=== PATIENT | female | born 1950 | race Caucasian/White ===

== ENCOUNTER 2016-07-02 01:37 | Observation (INO) | payer OTHER ==
--- NOTE | 2016-06-14 10:57 | History & Physical Pre-Op ---
General Information and HPI History of Present Illness: patient represents for discussion about her incisional hernia. She had laparoscopic sigmoid colectomy in 2008. Since then she noted increasing size of a bulge near her umbilicus. I saw her last year and recommended laparoscopic incisional hernia repair with mesh. She wanted to postpone surgery due to changes in her insurance. She now presents for reconsideration of hernia repair. She notes increasing swelling at the site. There is no pain. No nausea vomiting or change to her bowel function. Allergies/Medications Allergies: Coded Allergies: candesartan (From ATACAND) (HIVES 06/08/16) Home Med list Atenolol 50 MG TABLET 75 MG PO DAILY BP (Reported) Diltiazem HCl (Cardizem Cd) 300 MG CAP.ER.24H 1 CAP PO DAILY BP (Reported) Ergocalciferol (Vitamin D2) (Vitamin D2) 50,000 UNIT CAPSULE 1 CAP PO QSUN SUPPLEMENT (Reported) Fexofenadine HCl (Cheryl Allergy) 180 MG TABLET 1 TAB PO DAILY ALLERGIES ( Reported) Pravastatin Sodium (Pravachol) 20 MG TABLET 1 TAB PO DAILY CHOLESTEROL ( Reported) Sitagliptin Phosphate (Januvia) 100 MG TABLET 1 TAB PO DAILY DM (Reported) Past History Medical History Cardiovascular: hypertension, hyperlipidemia, SVT Gastrointestinal: GERD Endocrine: diabetes Cancer(s): colon/rectal cancer Influenza Vaccine: 03/25/09 Surgical History Pertinent Surgical History: LAPAROSCOPIC SIGMOID COLECTOMY Past Family/Social History Psychosocial History Services at Home NONE Smoking Status: Never Smoked ETOH Use: occasional use Review of Systems Review of Systems: Patient reports no cough, no wheezing, no shortness of breath, and no coughing up blood; reactive airway disease to smoke. She reports arthralgias/joint pain ( right knee) and back pain but reports no muscle aches and no muscle weakness. She reports no fatigue, no fever, no night sweats, no significant weight gain, no significant weight loss, and no exercise intolerance. She reports no abnormal moles, no jaundice, no hives, no eczema, and no rashes. She reports no swollen glands and no neck stiffness. She reports no chest pain, no arm pain on exertion , no shortness of breath when walking, no shortness of breath when lying down, no palpitations, and no leg swelling. She reports no abdominal pain, no vomiting , no vomiting blood, normal appetite, no diarrhea, no constipation, no rectal bleeding, and no history of GERD. She reports no incontinence, no difficulty urinating, no hematuria, and no increased frequency. She reports no loss of consciousness, no weakness, no numbness, no seizures, no dizziness, no loss of balance, no fall in the past year, and no fall since last visit. She reports no gynecologic complaints. Exam & Diagnostic Data Physical Exam: Patient is a 66-year-old female. Constitutional: General Appearance: healthy-appearing and obese. Level of Distress: no acute distress. Ambulation: ambulating normally. Head: Head: normocephalic and atraumatic. Cardiovascular: Heart Auscultation: normal S1 and S2; no murmurs, rubs, or gallops; and regular rate and rhythm. Lungs: Respiratory effort: no dyspnea. Percussion: no dullness, flatness, or hyperresonance. Auscultation: no wheezing, rales/crackles, or rhonchi and breath sounds normal, good air movement, and clear to auscultation. Back: Thoracolumbar Appearance: normal curvature. Abdomen: Inspection and Palpation: no tenderness, guarding, masses, rebound tenderness, or CVA tenderness and soft and non-distended. Bowel Sounds: normal. Liver: non-tender and no hepatomegaly. Spleen: non-tender and no splenomegaly. Hernia: periumbilical (tender, reducible. Defect size difficult to assess given obesity.). Skin: Inspection and palpation: no rash, lesions, ulcer, induration, nodules, jaundice, or abnormal nevi and good turgor. Musculoskeletal:: Extremities: no cyanosis, edema, varicosities, or palpable cord. Motor Strength and Tone: normal tone and motor strength. Joints, Bones, and Muscles: no contractures, malalignment, tenderness, or bony abnormalities and normal movement of all extremities. Psychiatric: Insight: good judgement and insight. Mental Status: normal mood and affect and active and alert. Orientation: to time, place, and person. Memory: recent memory normal and remote memory normal. Assessment/Plan Assessment/Plan: Incisional hernia - recommend laparoscopic repair . she will call to schedule surgery when she knows the specific date. I reinforced with her the need to undergo repair due to concerns about incarceration and strangulation. K43.2: Incisional hernia without obstruction or gangrene Discussion Notes Discussed the pathophysiology of hernias and the need for mesh repair. S/he understands the permanent nature of mesh. Discussed the risks of surgery including recurrence of the hernia, bleeding and infection. S/he understands that if mesh infection occurs, removal will necessary. S/he understands the need for general anesthesia. Discussed emergent complications of oberved hernias including increasing pain, distention, nausea and vomiting. Discussed erythema of hernia site as well. Patient understands to call me urgently or go to ER should these findings develop. As Ranked By This Provider Problem List: 1. Incisional hernia of anterior abdominal wall without obstruction or gangrene
[~2016-07-02] VITALS: Ht 170.2 cm; Wt 97.5 kg
[~2016-07-02 01:37] MED LIST: ALLEGRA ALLERG180 M1 PO; ATENOLOL50 M1 PO; CARDIZEM CD300 M1 PO; JANUVIA100 M1 PO; MOBIC15 MG PO; PRAVACHOL20 M2 PO; VITAMIN D250000 UNIT PO; ZANAFLEX4 MG PO
--- NOTE | 2016-07-02 17:43 | Operative Report ---
Operative/Inv Procedure Report Surgery Date: 07/02/16 Name of Procedure: Laparoscopic incisional hernia repair Pre-Operative Diagnosis: Incisional hernia Post-Operative Diagnosis: Same Estimated Blood Loss: scant Surgeon/Scene Painter: FLY RUFF,PAM Shah/Melba EDWARDS Anesthesia: general endotracheal tube Implants: 12 cm Parietex Operative/Procedure Note Note: After consent she is brought to the operating room and laid supine. Gen. anesthesia was obtained and her abdomen was prepped and draped. Skin and left upper quadrant was after local anesthesia a transverse incision made sharply. We gained access to the peritoneum using a 12 mm optical trocar. Pneumoperitoneum was achieved. No overt bowel injury was noted. 2, 5 mm ports are placed in left lower quadrant after local anesthesia was instilled and under direct vision the camera. The abdomen was explored. There was a solitary incisional hernia at the umbilicus. There was incarcerated omentum which was delivered and reflected inferiorly. The fatty preperitoneal tissue above the defect was taken down with cautery to expose healthy clean fascia. The measured of the defect was approximately 4 cm in greatest dimension. I chose a 12 cm Parietex mesh to cover the defect. It was marked for orientation then transfixion sutures using 0 Baker-Nino were placed in 4 quadrants. The mesh was hydrated rolled up and placed in the perineal cavity. It was unraveled below the defect. Transfixion sutures then brought up percutaneously superiorly and fairly thin laterally in a sequential fashion. Once were happy with the placement of mesh the sutures were tied down and trimmed. The mesh was then adhered to the anterior abdominal wall with the absorbable tackers in a double crown fashion. The fashion the left upper quadrant was closed with 0 Vicryl suture. The ports were delivered and pneumoperitoneum evacuated. Skin incisions closed with 4-0 Vicryl. Steri-Strips and sterile dressing were applied. Sponge and needle counts are correct. CC: YECENIA RUFF,KUSH Ziegler
[2016-07-02] MEDS ORDERED: METFORMIN HCL500 M3 PO (21:41)
[2016-07-02] MEDS ORDERED: PERCOCET 5-3251 EACH PO (21:44)
--- NOTE | 2016-07-02 21:45 | Patient Discharge Instructions ---
Discharge Instructions General Discharge Information You were seen/treated for: INCISIONAL HERNIA You had these procedures: LAPAROSCOPIC HERNIA REPAIR Watch for these problems: FEVER >101, DRAINAGE OR REDNESS OF INCISION SITES, PERSISTENT NAUSEA/VOMITING, CHEST PAIN, SHORTNESS OF BREATH. No bath, but you may shower: Yes Other wound care: YOU MAY SHOWER AND REMOVE BAND-AIDS DESIRED. LEAVE STERI STRIPS IN PLACE UNTIL THEY FALL OFF ON THEIR OWN. Diet Continue normal diet: Yes Recommended Diet: Diabetic Activity Full Activity/No Limits: No Activity Self Limited: Yes Pounds, do NOT lift more than: 5 Other activity limits: NO STRENUOUS ACTIVITY OR HEAVY LIFTING, PUSHING OR PULLING. NO DRIVING WHILE USING NARCOTICS. PLEASE SEE ATTACHED INSTRUCTION SHEET FOR FURTHER INFO. Acute Coronary Syndrome Inclusion Criteria At DC or during hospital stay patient has or had the following: ACS DIAGNOSIS No Discharge Core Measures Meds if any: Prescribed or Continued at Discharge Meds if any: NOT Prescribed or Continued at Discharge Congestive Heart Failure Inclusion Criteria At DC or during hospital stay patient has or had the following: CHF DIAGNOSIS No Discharge Core Measures Meds if any: Prescribed or Continued at Discharge Meds if any: NOT Prescribed or Continued at Discharge Cerebrovascular accident Inclusion Criteria At DC or during hospital stay patient has or had the following: CVA/TIA Diagnosis No Discharge Core Measures Meds if any: Prescribed or Continued at Discharge Meds if any: NOT Prescribed or Continued at Discharge Venous thromboembolism Inclusion Criteria VTE Diagnosis No VTE Type NONE VTE Confirmed by (Test) NONE Discharge Core Measures - Per Current guidelines, there needs to be overlap - treatment for the first 5 days of Warfarin therapy. - If discharged on Warfarin prior to 5 days of - overlap therapy, the patient will need to be - assessed for post discharge needs including - *Post discharge parental anticoagulation - *Warfarin and/or parental anticoagulation education - *Follow up date to check INR post discharge At least 5 days overlap therapy as Inpatient No Meds if any: Prescribed or Continued at Discharge Note: Overlap Therapy is Warfarin and Anticoagulant Meds if any: NOT Prescribed or Continued at Discharge
[2016-07-02 21:49] VITALS: BP 182/68
--- NOTE | 2016-07-02 21:53 | Event Note ---
Event Note Event Note: I was called by HEELER MACHINE earlier this evening with pt c/o nausea and very drowsy. The decision was made to admit pt for 23 hour observation. Pt's med list was updated. BP is in the 160's systolic at this time. Pt states that she did not take her atenolol this morning. She was given labetalol 200 mg IV x 2 in pacu. We will dose 25 mg of atenolol now and then restart her usual dose of 75 mg in AM. Zofran can be used as needed for nausea. Ok to advance diet as tolerated. If pt remains nauseated, consider starting a low rate of IVF. Dr. Lora is aware. Anticipate DC in am.
--- NOTE | 2016-07-02 23:00 | Admission Core Measures ---
Admission Meds I reviewed the following Meds: Current Medications Sig/Alejandra Start time Last Medication Dose Stop Time Status Admin Acetaminophen 650 MG Q6P PRN 07/02 2144 AC (Tylenol) Atenolol 75 MG DAILY 07/03 1000 AC (Tenormin) Diltiazem HCl 300 MG DAILY 07/03 1000 AC (Cardizem CD) Heparin Sodium 5,000 UNIT Q8 07/03 0600 AC (Porcine) Morphine Sulfate 2 MG Q2P PRN 07/02 2144 AC (Morphine) Ondansetron HCl 4 MG Q6P PRN 07/02 2144 AC (Zofran) Oxycodone/ 1 TAB Q4P PRN 07/02 2144 AC Acetaminophen (Percocet) Oxycodone/ 2 TAB Q4P PRN 07/02 2144 AC Acetaminophen (Percocet) Trimethobenzamide HCl 200 MG Q6P PRN 07/02 2144 AC (Tigan) Acute Coronary Syndrome Inclusion Criteria ACS Diagnosis No Inpatient Core Measures LDL Reminder: If No, please order W/I first 24hr of stay Congestive Heart Failure Inclusion Criteria CHF Diagnosis No Cerebrovascular accident Inclusion Criteria CVA/TIA Diagnosis No Inpatient Core Measures Bedside Swallow Eval Reminder: If BSE failed, place ST order Antithrombotic Reminder: Order Antithrombotic Medication by end of day 2 Antithrombotic Reminder: Document Reason Antithrombotic Not ordered by end of day 2 AFIB/Flutter Reminder: If Present, add to problem list AFIB/Flutter Reminder: Order Anticoag Medication for pts with AFIB/Flutter Atherosclerosis Reminder: If Present, add to problem list LDL Reminder: If No, please order W/I first 24hr of stay PT Order Reminder: If No, please order Venous thromboembolism Inpatient Core Measures VTE Risk Factors: Age > 40, Cancer/chemo/oth therapy, Surgery VTE Prophylaxis Ordered Inpt Mech & Pharm No Mech VTE prophylaxis d/t No contraindications No VTE Pharm Prophylaxis d/t No contraindications Inclusion Criteria - Per Current guidelines, there needs to be overlap - treatment for the first 5 days of Warfarin therapy. - Parenteral Anticoagulation (IV or SC) needs to be - given along with Warfarin therapy. VTE Diagnosis No VTE Type NONE VTE Confirmed by (Test) NONE Problem List As ranked by this Provider includes Assessment & Plan 1. Incisional hernia of anterior abdominal wall without obstruction or gangrene HOME MEDS Home Med List Atenolol 50 MG TABLET 1 TAB PO DAILY BP (Reported) Diltiazem HCl (Cardizem Cd) 300 MG CAP.ER.24H 1 CAP PO DAILY BP (Reported) Ergocalciferol (Vitamin D2) (Vitamin D2) 50,000 UNIT CAPSULE 1 CAP PO QSUN SUPPLEMENT (Reported) Fexofenadine HCl (Cheryl Allergy) 180 MG TABLET 1 TAB PO DAILY ALLERGIES ( Reported) Metformin HCl 500 MG TABLET 1 TAB PO DAILY DIABETES (Reported) Oxycodone HCl/Acetaminophen (Percocet 5-325 MG Tablet) 5 MG-325 MG TABLET 1-2 TAB PO Q4P PRN PAIN Pravastatin Sodium (Pravachol) 20 MG TABLET 1 TAB PO DAILY CHOLESTEROL ( Reported)
--- NOTE | 2016-07-02 23:42 | NUR ---
PT ARRIVED ON UNIT FROM PACU IN RECLINER. PT IS DROUSY AROUSABLE ALERT AND ORIENTED X3, C/O NAUSEA MEDICATED WITH IV ZOFRAN AFTER PT AMBULATED WITH MIN ASSIST TO BED. PT HAS PIV #20 TO RH CDI, D5LR RUNNING AT 75ML/HR PER NEYDA PA- C FLUIDS TO BE ORDERED IF PATIENT CONTIUES TO C/O OF NAUSEA AND/OR BEGINS VOMITING. 6 ABD BANDAIDS ARE CDI. VSS AFEBRILE HTN 182/68 PA-C NEYDA AWARE. ALPS IN PLACE, BED IN LOW POSTION, ORIENTED PATIENT TO BED CONTROLS AND CALL GUY. PATIENTS DAUGHTER LEFT PATIENTS GLASSES AND CELL PHONE ON TRAY TABLE.
[2016-07-03 01:20] VITALS: BP 154/90
--- NOTE | 2016-07-03 01:33 | NUR ---
REPORT RECEIVED FROM ARELY WHITE, PER RN PT'S BP WAS 182/68 ONE TIME DOSE OF ATENOLOL ORDERED, MED NOT GIVEN BY PREVIOUS RN BECAUSE MED NOT ON FLOOR, ADMINISTERED BP MED AT 0000 BY THIS RN BP 168/90 HR 86, NO DISTRESS, DENIES CHEST PAIN AND SOB. RECHECKED BP ONE HOUR LATER 154/90 HR 88. SURGICIAL JERRY VALERIO MADE AWARE, PER PA NO NEW ORDERS FOR BP AT THIS TIME BECAUSE PT WILL RECEIVE 75MG ATENOLOL IN AM. ALSO PA MADE AWARE PT IS A DIABETIC AND NO ORDERS FOR COVERAGE OR FINGERSTICKS, PER PA WILL PUT ORDERS IN. WILL CONTINUE TO MONITOR.
[2016-07-03 03:09] VITALS: BP 168/90
--- NOTE | 2016-07-03 03:19 | NUR ---
BP 168/90 SURGICIAL JERRY VALERIO MADE AWARE, NO NEW ORDERS AT THIS TIME.
[2016-07-03 06:19] VITALS: BP 166/88
[2016-07-03 08:42] VITALS: BP 120/70
--- NOTE | 2016-07-03 09:40 | PN- General Surgery ---
Subjective Subjective: POD #1 s/p laparoscopic incisional hernia repair. Resting comfortably in bed. Was nauseated last night, not currently. Has not vomited. Denies CP/SOB, F/C. Yet to ambulate. Voiding spontaneously. Objective Vital Signs and I&Os Vital Signs Date Time Temp Pulse Resp B/P Pulse O2 O2 Flow FiO2 Ox Delivery Rate 07/03 0842 120/70 07/03 0619 98.9 80 18 166/88 95 Nasal Cannula 07/03 0309 98.3 89 20 168/90 94 Nasal Cannula 07/03 0120 88 18 154/90 95 Nasal Cannula 07/03 0000 94 Nasal 2.0L Cannula 07/02 2359 86 20 168/90 07/02 2149 97.9 87 16 182/68 95 Nasal 2.0L Cannula Intake & Output 07/03 1600 07/03 0800 07/03 0000 07/02 1600 07/02 0800 07/02 0000 Intake Total 300 210 Output Total 1000 Balance -700 210 Intake, IV 150 Intake, Oral 300 60 Number 0 Bowel Movements Output, Urine 1000 Patient 215 lb Weight Physical Exam: Gen: AAOx3 in NAD Cor: S1+S2+ Lungs: CTA lico Abd: soft, diffusely tender to deep palpation, ND, +BS x4 Ext: no edema or calf tenderness to lico lower extremities. Assessment/Plan Assessment/Plan A: POD #1 s/p lap incisional hernia repair; AVSS. Plan: Continue regular diet. D/C home today. Core Measures/Miscellaneous Venous Thromboembolism VTE Risk Factors: Age > 40, Surgery VTE Contraindications: No Contraindications VTE Prophylaxis Ordered Inpt Mech & Pharm VTE Diagnosis: No VTE Type: NONE VTE Confirmed by (Test): NONE Beta Yolanda Is Beta Yolanda a Home Med? Yes If Yes, Was This Ordered Today? Yes Antibiotics Is Patient on Antibiotics? No
== END 2016-07-03 12:00 ==
LOC: ENRESERVDT → ENRESERVTM → STS 01:37 → ENPENDDIS 20:41 → PACUH 20:41 → 2NA 21:18
PROVIDERS: ADMIT Surgery
DX: K43.2 Incisional hernia without obstruction or gangrene (principal); R11.0 Nausea; R40.0 Somnolence
CPT/HCPCS: 6030; C1781; G0378; J0690; J1100; J1644; J2405; J3250

== ENCOUNTER 2017-10-08 20:19 | Emergency (ER) | payer OTHER ==
[~2017-10-08] VITALS: Ht 170.2 cm; Wt 99.8 kg
[~2017-10-08 20:19] MED LIST changes: +METFORMIN HCL500 M3 PO; +PERCOCET 5-3251 EACH PO
[2017-10-08 20:47] LABS: ABSOLUTE BASOPHIL COUNT 0 /CUMM (0.0-0.2); ABSOLUTE EOSINOPHIL COUNT 0.1 /CUMM (0.0-0.7); ABSOLUTE GRANULOCYTE CT 4.1 /CUMM (1.4-6.5); ABSOLUTE LYMPH COUNT 2.7 /CUMM (1.2-3.4); ABSOLUTE MONOCYTE COUNT 0.6 /CUMM (0.10-0.60); BASOPHIL % 0.3 % (0.0-2.0); EOSINOPHIL % 1.8 % (0-5); GRANULOCYTE % 54.1 % (42.2-75.2); HEMATOCRIT 40.4 % (37-47); MEAN CORPUSCULAR HGB 28.3 PG (27.0-31.0); MEAN CORPUSCULAR HGB CONC 32.8 G/DL (33.0-37.0); MEAN CORPUSCULAR VOLUME 86.3 FL (81.0-99.0); MEAN PLATELET VOLUME 6.2 FL (7.4-10.4); PLATELET COUNT 296 /CUMM (130-400); RBC DISTRIBUTION WIDTH 14.6 % (11.5-14.5); RED BLOOD CELL CT 4.68 /CUMM (4.20-5.40); WHITE BLOOD CELL COUNT 7.5 /CUMM (4.8-10.8)
--- NOTE | 2017-10-08 20:47 | ED AMS/SEIZURE/WEAK/DIZZY ---
History of Present Illness General Chief Complaint: Dizziness Stated Complaint: DIZZY, "MY HEART WAS BUZZING" Source: patient, family Exam Limitations: no limitations Vital Signs & Intake/Output Vital Signs & Intake/Output Vital Signs Date Time Temp Pulse Resp B/P B/P Pulse O2 O2 Flow FiO2 Mean Ox Delivery Rate 10/08 2356 98.2 66 18 178/86 96 Room Air 10/087 98.0 53 20 180/86 95 Room Air Room Air 10/08 2022 97.7 68 20 97 Room Air ED Intake and Output 10/09 0000 10/08 1200 Intake Total Output Total Balance Patient 220 lb Weight Allergies Coded Allergies: candesartan (From ATACAND) (HIVES 06/08/16) Reconcile Medications Atenolol 50 MG TABLET 1 TAB PO DAILY BP (Reported) PT TAKES 75 MG TOTAL DAILY Diltiazem HCl (Cardizem Cd) 300 MG CAP.ER.24H 1 CAP PO DAILY BP (Reported) Ergocalciferol (Vitamin D2) (Vitamin D2) 50,000 UNIT CAPSULE 1 CAP PO QSUN SUPPLEMENT (Reported) Fexofenadine HCl (Cheryl Allergy) 180 MG TABLET 1 TAB PO DAILY ALLERGIES ( Reported) Meclizine HCl 25 MG TABLET 1 TAB PO TIDPRN PRN vertigo Metformin HCl 500 MG TABLET 1 TAB PO DAILY DIABETES (Reported) Oxycodone HCl/Acetaminophen (Percocet 5-325 MG Tablet) 5 MG-325 MG TABLET 1-2 TAB PO Q4P PRN PAIN Pravastatin Sodium (Pravachol) 20 MG TABLET 1 TAB PO DAILY CHOLESTEROL ( Reported) Triage Note: PT TO TRIAGE C/O DIZZINESS WHILE DRIVING TODAY AND PT HAD TO REPORTS DEVELOPER. PT ALSO C/O FELT "MY HEART WAS BUZZING," BUT SINCE HAS PASSED. DENIES CP, SOB. PT ALSO C/O HTN AND LOWER EXT SWELLING. BP IN TRIAGE . PT ALSO REPORTS DOES NOT HAVE A SENIOR APPLICATIONS ENGINEER AND WOULD LIKE A REFFERAL. Triage Nurses Notes Reviewed? yes Onset: Gradual Duration: hour(s): Timing: recent history Injury Environment: home Severity: mild Modifying Factors: Improves With: rest, other (better w/holding head still). Associated Symptoms: "room spinning" HPI: 67 yo h/o diabetes, h/o svt, presents with vertigo at 5pm, also felt "buzzing" in chest. Her "buzzing" began shortly before her dizziness. She notes "a funny feeling," that was atypical of her svt, was not characterized as pressure or pain. She had no shortness of breath, wheezing, chills. She notes that, "I was driving and felt really dizzy... like the world was moving." Worse with movement of her head. Associated with mild nausea. She notes mild seasonal allergies, no medications changes. She is otherwise well. Past History Travel History Traveled to [place] past 21 day No Medical History Any Pertinent Medical History? see below for history Neurological: NONE EENT: NONE Cardiovascular: hypertension, hyperlipidemia, SVT Respiratory: NONE Gastrointestinal: GERD Hepatic: NONE Renal: NONE Musculoskeletal: NONE Psychiatric: NONE Endocrine: diabetes Blood Disorders: NONE Cancer(s): colon/rectal cancer STORE STOCK HELP/Reproductive: NONE History of MRSA: No History of VRE: No History of CDIFF: No Influenza Vaccine: 03/25/09 Surgical History Surgical History: none Psychosocial History Who do you live with Spouse Services at Home NONE What is your primary language Sinhala Tobacco Use: Never used Family History Hx Contributory? No Review of Systems Review of Systems Constitutional: Reports: no symptoms. EENTM: Reports: no symptoms. Respiratory: Reports: no symptoms. Cardiovascular: Reports: no symptoms. GI: Reports: no symptoms. Genitourinary: Reports: no symptoms. Musculoskeletal: Reports: no symptoms. Skin: Reports: no symptoms. Neurological/Psychological: Reports: no symptoms. Hematologic/Endocrine: Reports: no symptoms. Immunologic/Allergic: Reports: no symptoms. All Other Systems: Reviewed and Negative Physical Exam Physical Exam General Appearance: well developed/nourished, no apparent distress Head: atraumatic, normal appearance Eyes: Bilateral: normal appearance, PERRL, EOMI. Ears, Nose, Throat: normal pharynx, normal ENT inspection Neck: normal inspection, supple, full range of motion Respiratory: normal breath sounds, chest non-tender, no respiratory distress, quiet respiration, lungs clear Cardiovascular: regular rate/rhythm Gastrointestinal: normal bowel sounds, soft, non-tender, no organomegaly Back: normal inspection, normal range of motion Extremities: normal range of motion Neurologic/Psych: no motor/sensory deficits, awake, alert, oriented x 3, vertigo elicited with rapid head movement, no nystagmus Reflexes: 1+: bicep (R), bicep (L), knee (R), knee (L). Skin: intact, normal color, warm/dry Core Measures ACS in differential dx? No CVA/TIA Diagnosis No Sepsis Present: No Sepsis Focused Exam Completed? No Progress Differential Diagnosis: vertigo, lightheadedness, electrolyte abnormality, cardiac issues. Plan of Care: Orders Procedure Date/time Status TROPONIN LEVEL 10/08 2304 Complete EKG 10/08 2304 Active TROPONIN LEVEL 10/08 2022 Complete LIPASE 10/08 2022 Complete HEPATIC FUNCTION PANEL 10/08 2022 Complete D-DIMER 10/08 2022 Complete CBC WITHOUT DIFFERENTIAL 10/08 2022 Complete BASIC METABOLIC PANEL 10/08 2022 Complete AMYLASE 10/08 2022 Complete EKG 10/09 2019 Active Laboratory Tests 10/08/172304: Troponin I < 0.01 10/08/172039: Anion Gap 12, Estimated GFR > 60, BUN/Creatinine Ratio 32.0 H, Glucose 138 H, Calcium 9.2, Total Bilirubin 0.7, Direct Bilirubin 0.2, AST 19, ALT 31, Alkaline Phosphatase 74, Troponin I < 0.01, Total Protein 7.5, Albumin 4.4, Amylase 50, Lipase 103, D-Dimer High Sensitivty 237, CBC w Diff NO MAN DIFF REQ, RBC 4.68, MCV 86.3, MCH 28.3, MCHC 32.8 L, RDW 14.6 H, MPV 6.2 L, Gran % 54.1, Lymphocytes % 35.9, Monocytes % 7.9, Eosinophils % 1.8, Basophils % 0.3, Absolute Granulocytes 4.1, Absolute Lymphocytes 2.7, Absolute Monocytes 0.6, Absolute Eosinophils 0.1, Absolute Basophils 0 Diagnostic Imaging: Viewed by Me: Radiology Read. Discussed w/RAD: Radiology Read. CXR Impression: PATIENT: KIAN COLON PRESENT AGE: 67 PATIENT ACCOUNT NO: [id number] : 51 LOCATION: [facility] ORDERING PHYSICIAN: Jay Fan MD SERVICE DATE: 10/08/17-2022 EXAM TYPE: RAD - XRY- PORTABLE CHEST XRAY EXAMINATION: XR CHEST, PORTABLE CLINICAL INFORMATION: Chest pain. COMPARISON: Chest radiography 05/31/2012. TECHNIQUE: Portable frontal view of the chest was obtained. FINDINGS: The lungs are well expanded. Question of left basilar opacification (equivocal finding). No pulmonary edema, pleural effusion, or pneumothorax. No mediastinal widening. No acute osseous abnormalities. IMPRESSION: Equivocal left basilar opacification. No pulmonary edema. DICTATED BY: Brendan Avina MD DATE/TIME DICTATED:10/08/172155 EVENT SERVICES MANAGER:NAGA DATE/TIME TRANSCRIBED:10/08/172155 CONFIDENTIAL, DO NOT COPY WITHOUT APPROPRIATE AUTHORIZATION. <Electronically signed in Other Vendor System> SIGNED BY: Brendan Avina MD 10/08/172202 Initial ED EKG: nsr, no acute changes Repeat EKG: unchanged Comments: discussed ct scan... pt declines. Departure Departure Disposition: HOME OR SELF CARE Condition: Stable Clinical Impression Primary Impression: Vertigo Secondary Impressions: Chest discomfort Referrals: Komal RUFF,Mary Ziegler (PCP/Family) Departure Forms: Customer Survey General Discharge Information Prescriptions: Current Visit Scripts Meclizine HCl 1 TAB PO TIDPRN PRN vertigo #30 TAB Comments discussed at length with patient... trop/ekg benign x 2... pt declines meclizine and is feeling better... safe for discharge.... close follow up advised.
--- NOTE | 2017-10-08 22:03 | RADIOLOGY REPORT ---
EXAMINATION: XR CHEST, PORTABLE CLINICAL INFORMATION: Chest pain. COMPARISON: Chest radiography 05/31/2012. TECHNIQUE: Portable frontal view of the chest was obtained. FINDINGS: The lungs are well expanded. Question of left basilar opacification (equivocal finding). No pulmonary edema, pleural effusion, or pneumothorax. No mediastinal widening. No acute osseous abnormalities. IMPRESSION: Equivocal left basilar opacification. No pulmonary edema.
[2017-10-08] MEDS ORDERED: MECLIZINE HCL25 MG PO (22:39)
[2017-10-08 23:56] VITALS: BP 178/86
[2017-11-04] MEDS ORDERED: MECLIZINE HCL25 MG PO (01:18)
== END 2017-10-08 23:57 ==
LOC: ERH 20:19
PROVIDERS: Pediatrics
DX: R42 Dizziness and giddiness (principal); R07.89 Other chest pain
CPT/HCPCS: 71045; 93005; 93010